=== PATIENT | female | born 1990 | race African-American/Black ===

== ENCOUNTER 2022-08-01 19:10 | Emergency (ER) | payer OTHER, SELFPAY | END 2022-08-01 21:40 | disposition home or self-care (01) | LOC: EDSEX 19:10 → CSHERS 19:10 | DX: S52.122A Displaced fracture of head of left radius, initial encounter for closed fracture (principal); F17.210 Nicotine dependence, cigarettes, uncomplicated; W19.XXXA Unspecified fall, initial encounter ==